=== PATIENT | male | born 1980 | race Native Hawaiian/Other Pacific Islander ===

== ENCOUNTER → 2021-02-25 07:51 | Outpatient (CLI) | payer OTHER, SELFPAY ==
[2021-02-25] MEDS: COVID-19 VACC, Ad26(JANSSEN)/PF 0.5 ML IM (07:58)
== END ==
PROVIDERS: Visit Provider Internal Medicine
DX: Z23 Encounter for immunization (principal)
CPT/HCPCS: 0031A; 91303

== ENCOUNTER → 2024-07-10 07:49 | Outpatient (CLI) | payer BC, SELFPAY ==
--- NOTE | 2024-07-10 | DI.NM.S_ITS ---
PROCEDURE: NM EXERCISE TREADMILL NON NUC COMPARISON: None. INDICATIONS: chest pain, hypertension FINDINGS: The patient exercised for 6 minutes and 14 seconds reaching 84% of maximum predicted heart rate. App[place]ate [place] [address]. 7.0METs, DEDRA +45%. No angina, no diagnostic ST changes, and no ectopy during exercise or recovery. IMPRESSION: Low risk, normal treadmill ECG only stress test with reduced exercise capacity (DEDRA +45%). Adequate [place] [address] even though 84% of maximum predicted heart rate reached. Dictated by: David Rubi MD on 07/10/2024 at 14:38 Approved by: David Rubi MD on 07/10/2024 at 14:40
== END ==
LOC: RAD 07:50
PROVIDERS: Referring Provider Internal Medicine Cardiovascular Disease; Visit Provider Internal Medicine Cardiovascular Disease
DX: I10 Essential (primary) hypertension (principal); R07.2 Precordial pain
CPT/HCPCS: 93017